=== PATIENT | female | born 1990 | race African-American/Black ===

== ENCOUNTER 2019-04-26 05:12 | Emergency (ER) | payer OTHER ==
[~2019-04-26] VITALS: Ht 177.8 cm; Wt 72.6 kg
[2019-04-26] MEDS ORDERED: CLEOCIN HCL150 MG (05:25)
[2019-04-26 06:10] VITALS: BP 131/78
== END 2019-04-26 06:12 | disposition home or self-care (01) ==
LOC: M.ERS 05:12
DX: L02.413 Cutaneous abscess of right upper limb (principal)